=== PATIENT | male | born 1975 | race Hispanic/Latino ===

== ENCOUNTER → 2025-06-25 | Outpatient (CLI) | payer SELFPAY ==
[2025-06-25 17:59] LABS: BASOPHIL # 0.0 10^3/uL (0.0-0.1); BASOPHIL % 0.2 % (0.2-1.2); EOSINOPHIL # 0.2 10^3/uL (0.0-0.2); EOSINOPHIL % 1.6 % (0.0-5.0); HEMATOCRIT(ML) 48.7 % (37.0-53.0); IG % 0.00 % (0.00-0.50); LYMPHOCYTES # 3.85 10^3/uL1 (1.0-4.8); LYMPHOCYTES % 35.2 % (24.0-44.0); MEAN CORP HGB 30.6 pg (26-34); MEAN CORP HGB CONCENTRATION 34.3 g/dL (33-36.5); MEAN CORP VOLUME 89.4 fL (78-100); MONOCYTES # 1.0 10^3/uL (0.3-0.8); MONOCYTES % 9.3 % (5.0-12.0); NEUTROPHIL # 5.9 10^3/uL (1.8-7.7); NEUTROPHILS % 53.7 % (41.0-85.0); RED BLOOD CELL 5.45 10^6/uL (4.50-5.90); RED CELL DISTRIBUTION WIDTH 12.3 % (11.5-14.5); WHITE BLOOD CELL 11.0 10^3/uL (4.5-11.0)
== END | disposition home or self-care (01) ==
LOC: NPLAB 17:02
DX: R10.32 Left lower quadrant pain (principal); Z20.2 Contact with and (suspected) exposure to infections with a predominantly sexual mode of transmission
CPT/HCPCS: 36415; 80074; 85025; 86592; 87529